=== PATIENT | female | born 1960 | race Hispanic/Latino ===

== ENCOUNTER → 2019-10-02 | Outpatient (CLI) | payer OTHER | END | disposition home or self-care (01) | LOC: OIH 14:32 | PROVIDERS: ATTEND Internal Medicine | DX: S63.112A Subluxation of metacarpophalangeal joint of left thumb, initial encounter (principal); M13.842 Other specified arthritis, left hand; M13.841 Other specified arthritis, right hand; M06.4 Inflammatory polyarthropathy; X58.XXXA Exposure to other specified factors, initial encounter; Y93.89 Activity, other specified; Y92.89 Other specified places as the place of occurrence of the external cause; Y99.8 Other external cause status | CPT/HCPCS: 73130 ==